=== PATIENT | male | born 1995 | race Caucasian/White ===

== ENCOUNTER 2017-03-24 06:30 | Emergency (ER) | payer MEDICAID ==
[~2017-03-24] VITALS: Ht 167.6 cm; Wt 72.6 kg
[2017-03-24 07:29] LABS: BASOPHILS % (AUTO) 0.6 % (0.0-2.0); EOSINOPHILS # (AUTO) 0.1 K/uL (0.0-0.7); EOSINOPHILS % (AUTO) 0.7 % (0.0-7.0); HEMATOCRIT 45.4 % (40-50); HEMOGLOBIN 15.5 G/DL (14.0-18.0); LYMPHOCYTES # (AUTO) 2.1 K/UL (0.8-4.8); LYMPHOCYTES % (AUTO) 25.5 % (20.5-74.5); MEAN CORPUSCULAR HGB CONC 34 g/dL (32.0-37.0); MONOCYTES # (AUTO) 0.6 K/UL (0.1-1.30); MONOCYTES % (AUTO) 7.5 % (0-11); NEUTROPHILS # (AUTO) 5.4 K/UL (1.8-8.9); NEUTROPHILS % (AUTO) 65.7 % (31.5-64.5); PLATELET COUNT (AUTO) 296 K/UL (150-450); RED BLOOD CELL COUNT(AUTO) 5.16 MIL/UL (4.7-6.1); WHITE BLOOD COUNT (AUTO) 8.2 K/UL (4.0-11.2)
[2017-03-24 07:44] LABS: BILIRUBIN,DIRECT 0.1 mg/dL (0.0-0.2); BILIRUBIN,TOTAL 0.6 mg/dL (0.2-1.0)
[2017-03-24] MEDS ORDERED: LORAZEPAM 0.5 MG TABLET ONE (07:52)
[2017-03-24 07:56] LABS: CREATININE 1.1 mg/dL (0.6-1.3); POTASSIUM 4.1 mmol/L (3.5-5.1)
[2017-03-24] MEDS ORDERED: LORAZEPAM 0.5 MG TABLET PO ONE (08:00)
--- NOTE | 2017-03-24 08:45 | NUR ---
Patient discharged to home in stable conditon. Written and verbal after care instructions given. Patient verbalizes understanding of instructions.pt walks in steady gait. pt waiting for ride
[2017-03-24 09:02] VITALS: BP 132/77
[2017-03-25] MEDS ORDERED: IBUP-1955 PO (13:41)
== END 2017-03-24 09:04 | disposition home or self-care (01) ==
LOC: ER 06:32
DX: R51 Headache (principal); F41.9 Anxiety disorder, unspecified
CPT/HCPCS: 36415; 70450; 80048; 80076; 85025; 99285; A4663

== ENCOUNTER 2017-03-25 13:26 | Emergency (ER) | payer MEDICAID ==
[~2017-03-25] VITALS: Ht 172.7 cm; Wt 68.0 kg
[2017-03-25] MEDS ORDERED: IBUP-1955 PO (13:41)
[2017-03-25] MEDS ORDERED: LORAZEPAM 0.5 MG TABLET PO ONE (14:00)
[2017-03-25] MEDS ORDERED: LORAZEPAM 1 MG TABLET ONE (14:02)
--- NOTE | 2017-03-25 15:03 | NUR ---
Patient is resting comfortably in bed with eyes closed, NAD noted.
[2017-03-25 15:31] VITALS: BP 120/65
--- NOTE | 2017-03-25 15:31 | NUR ---
Patient discharged to home in stable conditon. Written and verbal after care instructions given. Patient verbalizes understanding of instructions.
== END 2017-03-25 15:32 | disposition home or self-care (01) ==
LOC: ER 13:26
DX: F41.9 Anxiety disorder, unspecified (principal); R51 Headache; R53.1 Weakness; R20.2 Paresthesia of skin
CPT/HCPCS: A4663

== ENCOUNTER 2017-03-26 15:35 | Emergency (ER) | payer MEDICAID ==
[~2017-03-26] VITALS: Ht 167.6 cm; Wt 72.6 kg
[~2017-03-26 15:35] MED LIST: IBUP-1955 PO
--- NOTE | 2017-03-26 15:50 | NUR ---
Dr Lau at the bedside for eval and exam.
--- NOTE | 2017-03-26 15:57 | NUR ---
JOSSELINE PATRICK FOR PSYCH EVAL CALLED, ETA 1 HOUR.
[2017-03-26 16:23] LABS: BASOPHILS # (AUTO) 0.1 K/uL (0.0-8.0); BASOPHILS % (AUTO) 0.6 % (0.0-2.0); CARBON DIOXIDE 30 mmol/L (21-32); CHLORIDE 103 mmol/L (98-107); CREATININE 1.2 mg/dL (0.6-1.3); EOSINOPHILS % (AUTO) 0.4 % (0.0-7.0); GLUCOSE 97 mg/dL (74-106); HEMATOCRIT 45.5 % (40-50); HEMOGLOBIN 15.1 G/DL (14.0-18.0); LYMPHOCYTES # (AUTO) 1.7 K/UL (0.8-4.8); LYMPHOCYTES % (AUTO) 18.3 % (20.5-74.5); MEAN CORPUSCULAR HEMOGLOBIN 28.9 UUG (27.0-31.0); MEAN CORPUSCULAR HGB CONC 33 g/dL (32.0-37.0); MEAN CORPUSCULAR VOLUME 86.7 FL (82.0-92.0); MONOCYTES # (AUTO) 0.7 K/UL (0.1-1.30); NEUTROPHILS # (AUTO) 6.6 K/UL (1.8-8.9); NEUTROPHILS % (AUTO) 72.7 % (31.5-64.5); PLATELET COUNT (AUTO) 279 K/UL (150-450); POTASSIUM 4.1 mmol/L (3.5-5.1); RED BLOOD CELL COUNT(AUTO) 5.25 MIL/UL (4.7-6.1); UREA NITROGEN, BLOOD 13 mg/dL (7-18); WHITE BLOOD COUNT (AUTO) 9.1 K/UL (4.0-11.2)
[2017-03-26 16:27] LABS: *BILIRUBIN,URIN NEGATIVE (NEGATIVE); *BLOOD, URINE NEGATIVE (NEGATIVE); *CLARITY,URINE CLEAR (CLEAR); *COLOR,URINE YELLOW (YELLOW); *KETONES,URINE NEGATIVE (NEGATIVE); *PROTEIN,URINE 1+ (NEGATIVE); LEUKOCYTE ESTERASE ,URINE NEGATIVE (NEGATIVE); NITRITE, URINE NEGATIVE (NEGATIVE); UGLUCOSE NEGATIVE (NEGATIVE)
[2017-03-26 16:29] LABS: ALANINE AMINOTRANSFERASE 22 U/L (16-63); ALKALINE PHOSPHATASE 119 U/L (50-136); ASPARTATE AMINOTRANSFERASE 14 U/L (15-37); BILIRUBIN,DIRECT 0.2 mg/dL (0.0-0.2); BILIRUBIN,TOTAL 0.6 mg/dL (0.2-1.0); TOTAL PROTEIN, SERUM 7.9 g/dL (6.4-8.2)
[2017-03-26 16:31] LABS: ETHANOL < 3 MG/DL (0-0)
[2017-03-26 16:32] LABS: ACETAMINOPHEN < 2.0 ug/mL (10-30)
[2017-03-26 16:33] LABS: *AMPHETAMINE, URINE NEGATIVE (NEGATIVE); *BARBITURATE, URINE NEGATIVE (NEGATIVE); *CANNABINOID, URINE NEGATIVE (NEGATIVE); *COCCAINE, URINE NEGATIVE (NEGATIVE); *OPIATE, URINE NEGATIVE (NEGATIVE); *PHENCYCLIDINE SCREEN,URINE NEGATIVE (NEGATIVE)
[2017-03-26 16:57] LABS: THYROID STIMULATING HORMONE 1.204 mIU/mL (0.358-3.740); WBC,URINE NONE SEEN /HPF (0-3)
--- NOTE | 2017-03-26 17:31 | NUR ---
John Paul Owens at the bedside for PSYCH eval.
[2017-03-26 18:09] VITALS: BP 115/79
--- NOTE | 2017-03-26 18:16 | NUR ---
Patient discharged to home in stable conditon. Written and verbal after care instructions given. Patient verbalizes understanding of instructions.
== END 2017-03-26 18:17 | disposition home or self-care (01) ==
LOC: ER 15:36
DX: F41.9 Anxiety disorder, unspecified (principal)
CPT/HCPCS: 36415; 80307; 84443; 85025; 85730; 86592; A4663; G0480; G0480-TC

== ENCOUNTER 2017-11-12 17:55 | Emergency (ER) | payer MEDICAID ==
[~2017-11-12] VITALS: Ht 170.2 cm; Wt 68.0 kg
--- NOTE | 2017-11-12 19:24 | NUR ---
RECEIVED REPORT FROM FELIBERTO BELLO.
--- NOTE | 2017-11-12 19:33 | NUR ---
Patient discharged to home in stable conditon. Written and verbal after care instructions given. Patient verbalizes understanding of instructions. Patient expressed reduced level of pain. Patient able to ambulate unassisted with steady gait. Patient left with all personal belongings.
[2017-11-12 19:35] VITALS: BP 125/67
== END 2017-11-12 19:36 | disposition home or self-care (01) ==
LOC: ER 17:57
DX: G89.29 Other chronic pain (principal); M54.2 Cervicalgia; Z90.49 Acquired absence of other specified parts of digestive tract; Z79.1 Long term (current) use of non-steroidal anti-inflammatories (NSAID)
CPT/HCPCS: A4663

== ENCOUNTER 2018-05-04 00:04 | Inpatient (IN) | payer MEDICAID ==
[~2018-05-04] VITALS: Ht 170.2 cm; Wt 72.1 kg
[2018-05-04] VITALS (18 sets, daily range): BP systolic 98–121; BP diastolic 27–87
--- NOTE | 2018-05-04 00:10 | NUR ---
Dr. Barlow at bedside for MSE.
[2018-05-04] MEDS ORDERED: DILTIAZEM HCL 25 MG IV IV ONE ×3 (00:15→02:15)
[2018-05-04] MEDS ORDERED: DILTIAZEM HCL 25 MG IV ONE ×4 (00:21→02:10)
[2018-05-04] MEDS ORDERED: IV NORMAL SALINE 1000 ML BAG IV ONE (00:30)
[2018-05-04 00:32] LABS: BASOPHILS # (AUTO) 0.1 K/uL (0.0-8.0); BASOPHILS % (AUTO) 0.5 % (0.0-2.0); EOSINOPHILS # (AUTO) 0.1 K/uL (0.0-0.7); EOSINOPHILS % (AUTO) 0.5 % (0.0-7.0); HEMATOCRIT 47.5 % (36.7-47.1); HEMOGLOBIN 16.3 g/dL (12.5-16.3); LYMPHOCYTES # (AUTO) 2.6 K/uL (20.0-40.0); LYMPHOCYTES % (AUTO) 23.3 % (20.5-51.5); MEAN CORPUSCULAR HEMOGLOBIN 30.4 uug (23.8-33.4); MEAN CORPUSCULAR HGB CONC 34 g/dL (32.5-36.3); MEAN CORPUSCULAR VOLUME 88.7 fL (73.0-96.2); MONOCYTES # (AUTO) 1.1 K/uL (2.0-10.0); MONOCYTES % (AUTO) 9.3 % (0.0-11.0); NEUTROPHILS # (AUTO) 7.5 K/uL (1.8-8.9); NEUTROPHILS % (AUTO) 66.4 % (38.5-71.5); PLATELET COUNT (AUTO) 224 K/uL (152-348); RED BLOOD CELL COUNT(AUTO) 5.36 MIL/uL (4.06-5.63); WHITE BLOOD COUNT (AUTO) 11.3 K/uL (3.6-10.2)
[2018-05-04 00:37] LABS: CREATININE 1.1 mg/dL (0.6-1.3); POTASSIUM 3.5 mmol/L (3.5-5.1)
[2018-05-04] MEDS ORDERED: LORAZEPAM 2 MG/1 ML VIAL IV ONE (00:45)
[2018-05-04] MEDS ORDERED: LORAZEPAM 2 MG/1 ML VIAL ONE (00:49)
[2018-05-04] MEDS ORDERED: DILTIAZEM HCL IV 125 MG in IV DEXTROSE 5% 100 ML IV PRN (01:30)
[2018-05-04] MEDS ORDERED: DILTIAZEM HCL 50 MG IV ONE (01:52)
--- NOTE | 2018-05-04 01:54 | NUR ---
SPOKE WITH PT.HE STATES THAT HE TAKES NO PRESCRIPTION MEDS AT HOME
--- NOTE | 2018-05-04 02:10 | NUR ---
Xray at bedside
--- NOTE | 2018-05-04 02:10 | NUR ---
Dr. Barlow on panel call with Dr. Joseph.
[2018-05-04 02:20] LABS: BILIRUBIN,DIRECT 0.2 mg/dL (0.0-0.2); BILIRUBIN,TOTAL 0.4 mg/dL (0.2-1.0); TOTAL PROTEIN, SERUM 6.9 g/dL (6.4-8.2)
[2018-05-04] MEDS ORDERED: Z GUARD REMEDY PASTE 57 GM TUBE TOP PRN (02:30)
[2018-05-04] MEDS ORDERED: MAGNESIUM HYDROXIDE 30 ML LIQUID UDC PO PRN (02:30)
[2018-05-04] MEDS ORDERED: ONDANSETRON 4 MG/2 ML VIAL IV PRN (02:30)
[2018-05-04] MEDS ORDERED: HYDROCODONE/APAP 5-325MG TABLET PO PRN (02:30)
[2018-05-04] MEDS ORDERED: ACETAMINOPHEN 325 MG TABLET PO PRN (02:30)
--- NOTE | 2018-05-04 02:41 | NUR ---
Report given to Vini DAO CCU.
--- NOTE | 2018-05-04 03:20 | NUR ---
Admitted to CCU Room 4 from ER via carol accompanied by VEHICLE TRIMMER. Adm. Dx: SVT under the services of Dr. Marcano/[facility]. Pt alert, oriented, cooperative. Cardizem drip 5 mg/hr infusing from ER at right antecubital IV site. Plans of care discussed. Oriented to CCU environment and routine. Please see CCU admission profile. Sister in for brief time.
--- NOTE | 2018-05-04 03:30 | NUR ---
Cardizem drip titrated up, O2 2L/min applied. Close monitoring in progress.
--- NOTE | 2018-05-04 04:19 | NUR ---
Converted to SR rate 70's. Pt sleeping at periodic intervals. Denies pain/discomfort.
[2018-05-04 05:05] LABS: *BILIRUBIN,URIN NEGATIVE (NEGATIVE); *BLOOD, URINE NEGATIVE (NEGATIVE); *CLARITY,URINE CLEAR (CLEAR); *COLOR,URINE LIGHT YELLOW (YELLOW); *KETONES,URINE NEGATIVE (NEGATIVE); *PROTEIN,URINE NEGATIVE (NEGATIVE); *UROBILINOGEN,URINE 0.2 E.U./dl (NORMAL); LEUKOCYTE ESTERASE ,URINE NEGATIVE (NEGATIVE); NITRITE, URINE NEGATIVE (NEGATIVE); UGLUCOSE NEGATIVE (NEGATIVE)
[2018-05-04 05:20] LABS: BACTERIA,URINE NONE SEEN /HPF (NONE SEEN); RBC,URINE NONE SEEN /HPF (0-3); SQUAMOUS EPITHELIAL CELL,UR NONE SEEN /HPF (NONE SEEN); WBC,URINE 0-3 /HPF (0-3)
[2018-05-04 05:47] LABS: *AMPHETAMINE, URINE NEGATIVE (NEGATIVE); *BARBITURATE, URINE NEGATIVE (NEGATIVE); *CANNABINOID, URINE NEGATIVE (NEGATIVE); *COCCAINE, URINE NEGATIVE (NEGATIVE); *OPIATE, URINE NEGATIVE (NEGATIVE); *PHENCYCLIDINE SCREEN,URINE NEGATIVE (NEGATIVE)
--- NOTE | 2018-05-04 07:33 | NUR ---
RECEIVED A 23 Y/O MALE PT A CASE OF SVT, ALERT CONSCIOUS ORIENTED , PT ASLEEP ON BED, BREATHING VIA N/C 3LPM. HAS A IV LINE ON HIS RT AC G20, RECEIVING CARDIZEM DRIP 5MG/HR AND N/S IV @TKO. URINATING FREELY USING THE URINAL.
--- NOTE | 2018-05-04 17:10 | NUR ---
SEEN BY DR SHAHID AND PT ASSESSED , ORDERED FOR AN EKG, WROTE THE PATIENT A DISCHARGE PRESCRIPTION, AND SAID ITS OKAY FOR THE PATIENT TO BE DISCHARGED. ALL ORDERS RECEIVED AND EKG DONE.
--- NOTE | 2018-05-04 18:22 | NUR ---
ORDER BY DR RUBIO FOR PATIENT DISCHARGE . ORDER RECEIVED AND DONE.
--- NOTE | 2018-05-04 18:52 | NUR ---
PATIENT DISCHARGED TO HOME RECEIVED ALL HIS BELONGINGS AND DISCHARGE INSTRUCTIONS AND PRESCRIPTION.
== END 2018-05-04 18:45 | disposition home or self-care (01) | DRG 201 ==
LOC: ER 00:07 → CCU 02:49
PROVIDERS: ADMIT Family Medicine; ATTEND Family Medicine
DX: I48.0 Paroxysmal atrial fibrillation (principal); I21.A1 Myocardial infarction type 2; D72.828 Other elevated white blood cell count; F41.9 Anxiety disorder, unspecified; Z82.3 Family history of stroke; Z83.3 Family history of diabetes mellitus; R73.9 Hyperglycemia, unspecified
CPT/HCPCS: 36415; 70030-TC; 71045; 80307; 84443; 85025; 93005; 93307; A4663; J2060; J3490; J7030; J7060

== ENCOUNTER 2019-01-07 18:08 | Emergency (ER) | payer MEDICAID ==
[~2019-01-07] VITALS: Ht 170.2 cm; Wt 72.6 kg
[2019-01-07 18:24] LABS: BASOPHILS # (AUTO) 0.1 K/uL (0.0-8.0); BASOPHILS % (AUTO) 0.7 % (0.0-2.0); EOSINOPHILS # (AUTO) 0.1 K/uL (0.0-0.7); EOSINOPHILS % (AUTO) 0.6 % (0.0-7.0); HEMATOCRIT 45.8 % (36.7-47.1); HEMOGLOBIN 15.8 g/dL (12.5-16.3); LYMPHOCYTES # (AUTO) 2.4 K/uL (20.0-40.0); LYMPHOCYTES % (AUTO) 28.5 % (20.5-51.5); MEAN CORPUSCULAR HEMOGLOBIN 29.8 uug (23.8-33.4); MEAN CORPUSCULAR HGB CONC 35 g/dL (32.5-36.3); MEAN CORPUSCULAR VOLUME 86.2 fL (73.0-96.2); MONOCYTES # (AUTO) 0.8 K/uL (2.0-10.0); MONOCYTES % (AUTO) 9.7 % (0.0-11.0); NEUTROPHILS # (AUTO) 5.1 K/uL (1.8-8.9); NEUTROPHILS % (AUTO) 60.5 % (38.5-71.5); PLATELET COUNT (AUTO) 251 K/uL (152-348); RED BLOOD CELL COUNT(AUTO) 5.31 MIL/uL (4.06-5.63); WHITE BLOOD COUNT (AUTO) 8.4 K/uL (3.6-10.2)
[2019-01-07 18:34] LABS: CREATININE 1.1 mg/dL (0.6-1.3); POTASSIUM 3.6 mmol/L (3.5-5.1)
[2019-01-07] MEDS ORDERED: METOPROLOL TARTRATE 5 MG/5 ML VIAL IVP ONE ×2 (18:43→18:45)
[2019-01-07] MEDS ORDERED: ETOMIDATE 20 MG/10 ML VIAL IV ONE (18:45)
[2019-01-07 18:47] LABS: BILIRUBIN,DIRECT 0.1 mg/dL (0.0-0.2); BILIRUBIN,TOTAL 0.6 mg/dL (0.2-1.0); TOTAL PROTEIN, SERUM 7.6 g/dL (6.4-8.2)
--- NOTE | 2019-01-07 18:50 | NUR ---
Moderate sedation for synchronized cardioversion done with , nursing staff and RT at bedside.
[2019-01-07] MEDS ORDERED: ETOMIDATE 20 MG/10 ML VIAL ONE (18:51)
--- NOTE | 2019-01-07 18:51 | NUR ---
Etomidate IVP given by Philippe DAO as ordered by . Biphasic synchronized cardioversion 100J x 1 by , pt converted to NSR.
--- NOTE | 2019-01-07 18:55 | NUR ---
Pt is awake, alert and oriented x 3 with no distress noted. Pt denies any chest pain, palpitations or sob at this time. Cont math specialist shows NSR.
[2019-01-07] MEDS ORDERED: METOPROLOL SUCCINATE XL 25 MG TAB.SR.24H PO ONE ×2 (18:59→19:00)
--- NOTE | 2019-01-07 19:07 | NUR ---
REPORT GIVEN TO INSURANCE RISK SURVEYORAERONAUTICAL ENGINEERING TECHNOLOGIST.
[2019-01-07] MEDS ORDERED: LORAZEPAM 2 MG/1 ML VIAL ONE (19:25)
[2019-01-07] MEDS ORDERED: LORAZEPAM 2 MG/1 ML VIAL IV ONE (19:30)
--- NOTE | 2019-01-07 20:35 | NUR ---
Patient discharged to home in stable conditon. Written and verbal after care instructions given. Patient verbalizes understanding of instructions. Patient ambulated with stable gait. Patient does not appear to be shakey, patient able to ambulate all extremities. Respiratory even and unlabored, no distress. Advised f/u appt to PMD or cleaning associate regarding ablation, patient understands necessity.
[2019-01-07 20:37] VITALS: BP 117/85
== END 2019-01-07 20:30 | disposition home or self-care (01) ==
LOC: ER 18:09
DX: I48.2 Chronic atrial fibrillation (principal); F41.9 Anxiety disorder, unspecified; Z90.49 Acquired absence of other specified parts of digestive tract
CPT/HCPCS: 36415; 71045; 80048; 80076; 83880; 84484; 85025; 85730; 92960; 93005 ×2; 96374; 96375; 99152; 99285; J2060; J3490 ×2; 70030-TC; A4663; G0500

== ENCOUNTER 2019-01-20 23:57 | Emergency (ER) | payer MEDICAID ==
[~2019-01-20] VITALS: Ht 170.2 cm; Wt 72.6 kg
--- NOTE | 2019-01-21 00:08 | NUR ---
Patient ambulated with stable gait. A/Ox4. SPeech clear, speaks in complete sentences no neuro deficits. Patient came in for c/o rapid heart rate s/p sexual intercourse with girlfriend [address]. Patient appears anxious. Respiratory rate is increased. No GI/ distress noted. Patient seen here last time for same complaint. Patient in bed at lowest position, sr upx2, call light within reach. Fall precautions implemented per protocol.
[2019-01-21] MEDS: DILTIAZEM HCL 25 MG IV IV ONE ×2 (00:15→00:23)
[2019-01-21] MEDS: IV NORMAL SALINE 1000 ML BAG IV ONE ×2 (00:15→00:23)
[2019-01-21] MEDS: LORAZEPAM 2 MG/1 ML VIAL IV ONE ×3 (00:15→00:32)
[2019-01-21] MEDS ORDERED: DILTIAZEM HCL 25 MG IV ONE (00:19)
[2019-01-21] MEDS ORDERED: LORAZEPAM 2 MG/1 ML VIAL ONE (00:28)
[2019-01-21 00:29] LABS: BASOPHILS # (AUTO) 0.1 K/uL (0.0-8.0); BASOPHILS % (AUTO) 0.8 % (0.0-2.0); EOSINOPHILS # (AUTO) 0.1 K/uL (0.0-0.7); HEMATOCRIT 45.9 % (36.7-47.1); HEMOGLOBIN 15.6 g/dL (12.5-16.3); LYMPHOCYTES # (AUTO) 2.9 K/uL (20.0-40.0); LYMPHOCYTES % (AUTO) 34.1 % (20.5-51.5); MEAN CORPUSCULAR HEMOGLOBIN 29.8 uug (23.8-33.4); MEAN CORPUSCULAR HGB CONC 34 g/dL (32.5-36.3); MEAN CORPUSCULAR VOLUME 87.7 fL (73.0-96.2); MONOCYTES # (AUTO) 0.7 K/uL (2.0-10.0); MONOCYTES % (AUTO) 8.4 % (0.0-11.0); NEUTROPHILS # (AUTO) 4.7 K/uL (1.8-8.9); NEUTROPHILS % (AUTO) 55.7 % (38.5-71.5); PLATELET COUNT (AUTO) 196 K/uL (152-348); RED BLOOD CELL COUNT(AUTO) 5.23 MIL/uL (4.06-5.63); WHITE BLOOD COUNT (AUTO) 8.4 K/uL (3.6-10.2)
[2019-01-21 00:40] LABS: CREATININE 1.3 mg/dL (0.6-1.3); POTASSIUM 3.3 mmol/L (3.5-5.1)
[2019-01-21 00:46] LABS: BILIRUBIN,DIRECT 0.1 mg/dL (0.0-0.2); BILIRUBIN,TOTAL 0.3 mg/dL (0.2-1.0); TOTAL PROTEIN, SERUM 7.2 g/dL (6.4-8.2)
[2019-01-21 01:30] VITALS: BP 112/74
--- NOTE | 2019-01-21 01:31 | NUR ---
Patient discharged to home in stable conditon. Written and verbal after care instructions given. Patient verbalizes understanding of instructions. Patient ambulated with stable gait. Instructed patient that he cannot drive and needs to have his girlfriend drive due to medications given, patient understands.
== END 2019-01-21 01:35 | disposition home or self-care (01) ==
LOC: ER 01-21
DX: I47.1 Supraventricular tachycardia (principal); I48.91 Unspecified atrial fibrillation; Z90.49 Acquired absence of other specified parts of digestive tract
CPT/HCPCS: 36415; 71045; 80048; 80076; 83690; 84484; 85025; 85730; 93005; 96374; 96375; 99284; J2060; J3490; 70030-TC; A4663; J7030

== ENCOUNTER 2019-02-03 18:37 | Emergency (ER) | payer MEDICAID ==
[~2019-02-03] VITALS: Ht 170.2 cm; Wt 74.8 kg
[2019-02-03] MEDS ORDERED: DILT-32 PO (18:49)
--- NOTE | 2019-02-03 19:03 | NUR ---
Patient discharged to home in stable conditon & brisk steady gait. Written and verbal after care instructions given to patient. Patient verbalizes understanding of instructions.
== END 2019-02-03 19:08 | disposition home or self-care (01) ==
LOC: ER 18:39
DX: I47.1 Supraventricular tachycardia (principal); I48.91 Unspecified atrial fibrillation; Z90.49 Acquired absence of other specified parts of digestive tract; Z79.899 Other long term (current) drug therapy; Z86.79 Personal history of other diseases of the circulatory system
CPT/HCPCS: A4663

== ENCOUNTER 2019-02-06 03:22 | Emergency (ER) | payer MEDICAID ==
[~2019-02-06] VITALS: Ht 170.2 cm; Wt 74.8 kg
[~2019-02-06 03:22] MED LIST changes: +DILT-32 PO; -IBUP-1955 PO
--- NOTE | 2019-02-06 03:40 | NUR ---
Patient came in for c/o palpitations. Patient seen here before for SVT. Speech is clear, speaks in complete sentences. A/Ox4. No neuro deficits. No respiratory distress noted, no cough no sob. No GI/ distress.
[2019-02-06 04:23] LABS: BASOPHILS % (AUTO) 0.4 % (0.0-2.0); EOSINOPHILS # (AUTO) 0.1 K/uL (0.0-0.7); EOSINOPHILS % (AUTO) 0.9 % (0.0-7.0); HEMATOCRIT 45.3 % (36.7-47.1); HEMOGLOBIN 15.8 g/dL (12.5-16.3); LYMPHOCYTES % (AUTO) 31.2 % (20.5-51.5); MEAN CORPUSCULAR HEMOGLOBIN 29.8 uug (23.8-33.4); MEAN CORPUSCULAR HGB CONC 35 g/dL (32.5-36.3); MEAN CORPUSCULAR VOLUME 85.7 fL (73.0-96.2); MONOCYTES # (AUTO) 0.9 K/uL (2.0-10.0); MONOCYTES % (AUTO) 9.2 % (0.0-11.0); NEUTROPHILS # (AUTO) 5.5 K/uL (1.8-8.9); NEUTROPHILS % (AUTO) 58.3 % (38.5-71.5); PLATELET COUNT (AUTO) 252 K/uL (152-348); RED BLOOD CELL COUNT(AUTO) 5.29 MIL/uL (4.06-5.63); WHITE BLOOD COUNT (AUTO) 9.5 K/uL (3.6-10.2)
[2019-02-06 04:28] LABS: CREATININE 1.1 mg/dL (0.6-1.3); POTASSIUM 3.5 mmol/L (3.5-5.1)
--- NOTE | 2019-02-06 06:23 | NUR ---
Patient discharged to home in stable conditon. Written and verbal after care instructions given. Patient verbalizes understanding of instructions. Patient ambulated with stable gait.
[2019-02-06 06:25] VITALS: BP 130/72
== END 2019-02-06 06:25 | disposition home or self-care (01) ==
LOC: ER 03:26
DX: I47.1 Supraventricular tachycardia (principal); I48.91 Unspecified atrial fibrillation; Z90.49 Acquired absence of other specified parts of digestive tract; Z79.899 Other long term (current) drug therapy
CPT/HCPCS: 36415; 70030-TC; 83735; 85025; 93005; A4663

== ENCOUNTER 2019-04-29 00:47 | Emergency (ER) | payer MEDICAID ==
[~2019-04-29] VITALS: Ht 170.2 cm; Wt 72.6 kg
[2019-04-29] MEDS ORDERED: OXYCODONE/APAP 5-325 MG TABLET ONE (01:58)
--- NOTE | 2019-04-29 01:59 | NUR ---
Patient discharged to home in stable conditon. Written and verbal after care instructions given. Patient verbalizes understanding of instructions.
[2019-04-29 02:00] VITALS: BP 128/69
[2019-04-29] MEDS ORDERED: OXYCODONE/APAP 5-325 MG TABLET PO ONE (02:00)
== END 2019-04-29 02:01 | disposition home or self-care (01) ==
LOC: ER 00:50
DX: M54.5 Low back pain (principal); I48.91 Unspecified atrial fibrillation; F41.9 Anxiety disorder, unspecified; Z90.49 Acquired absence of other specified parts of digestive tract; Z79.899 Other long term (current) drug therapy
CPT/HCPCS: 72100; A4663

== ENCOUNTER 2019-07-12 22:44 | Emergency (ER) | payer MEDICAID, OTHER ==
[~2019-07-12] VITALS: Ht 172.7 cm; Wt 78.0 kg
--- NOTE | 2019-07-12 23:35 | NUR ---
Patient discharged to home in stable conditon. Written and verbal after care instructions given. Patient verbalizes understanding of instructions.
[2019-07-12 23:36] VITALS: BP 132/76
== END 2019-07-12 23:36 | disposition home or self-care (01) ==
LOC: ER 22:44
DX: R06.00 Dyspnea, unspecified (principal); I48.91 Unspecified atrial fibrillation; F41.9 Anxiety disorder, unspecified; Z90.49 Acquired absence of other specified parts of digestive tract; Z79.899 Other long term (current) drug therapy
CPT/HCPCS: 93005; A4663

== ENCOUNTER 2019-07-15 18:16 | Emergency (ER) | payer OTHER ==
[~2019-07-15] VITALS: Ht 170.2 cm; Wt 72.6 kg
--- NOTE | 2019-07-15 18:27 | NUR ---
pt ambulating with steady gait. A&O x4. c/o left eye pain x2 days. 6/10 on the pain scale. Redness noted on left eye. per pt blurred vision on left eye. per pt contact lenses could've caused problem. Vision test done. pt wearing contact lenses on right eye. RIGHT 20/40. LEFT 20/100. BOTH 20/50. denies any dizziness. Breathing even and unlabored. Denies any SOB. speech clear and able to make needs known / follow commands.
--- NOTE | 2019-07-15 18:30 | NUR ---
ERMD at bedside for MSE
--- NOTE | 2019-07-15 18:48 | NUR ---
Patient discharged to home in stable conditon. Patient ambulating with steady gait. Written and verbal after care instructions given. Patient verbalizes understanding of instructions.
[2019-07-15 18:49] VITALS: BP 122/70
== END 2019-07-15 18:49 | disposition home or self-care (01) ==
LOC: ER 18:16
DX: H10.022 Other mucopurulent conjunctivitis, left eye (principal); I48.91 Unspecified atrial fibrillation; F41.9 Anxiety disorder, unspecified; Z90.49 Acquired absence of other specified parts of digestive tract; Z79.899 Other long term (current) drug therapy
CPT/HCPCS: A4663

== ENCOUNTER 2019-09-18 02:44 | Emergency (ER) | payer OTHER ==
[~2019-09-18] VITALS: Ht 170.2 cm; Wt 74.8 kg
[2019-09-18 03:08] LABS: BASOPHILS % (AUTO) 0.4 % (0.0-2.0); EOSINOPHILS % (AUTO) 0.7 % (0.0-7.0); HEMATOCRIT 46.5 % (36.7-47.1); HEMOGLOBIN 15.4 g/dL (12.5-16.3); LYMPHOCYTES # (AUTO) 2.3 K/uL (20.0-40.0); LYMPHOCYTES % (AUTO) 33.5 % (20.5-51.5); MEAN CORPUSCULAR HEMOGLOBIN 29.4 uug (23.8-33.4); MEAN CORPUSCULAR HGB CONC 33 g/dL (32.5-36.3); MEAN CORPUSCULAR VOLUME 88.5 fL (73.0-96.2); MONOCYTES # (AUTO) 0.6 K/uL (2.0-10.0); MONOCYTES % (AUTO) 8.2 % (0.0-11.0); NEUTROPHILS # (AUTO) 3.9 K/uL (1.8-8.9); NEUTROPHILS % (AUTO) 57.2 % (38.5-71.5); PLATELET COUNT (AUTO) 213 K/uL (152-348); RED BLOOD CELL COUNT(AUTO) 5.25 MIL/uL (4.06-5.63); WHITE BLOOD COUNT (AUTO) 6.8 K/uL (3.6-10.2)
[2019-09-18 03:12] LABS: POTASSIUM 3.6 mmol/L (3.5-5.1)
[2019-09-18] MEDS ORDERED: DILTIAZEM HCL CD 120 MG CAP.SR.24H PO ONE ×2 (03:39→03:45)
[2019-09-18] MEDS ORDERED: POTASSIUM CHLORIDE 20 MEQ TAB.PRT.SR ONE (03:40)
[2019-09-18] MEDS ORDERED: POTASSIUM CHLORIDE 20 MEQ TAB.PRT.SR PO ONE (03:45)
--- NOTE | 2019-09-18 04:42 | NUR ---
Patient discharged to home in stable conditon. Written and verbal after care instructions given. Patient verbalizes understanding of instructions. Pt ambulated out of ER with steady gait, no acute signs of distress, VSS, all belongings taken, IV site discontinued.
[2019-09-18 04:43] VITALS: BP 104/56
== END 2019-09-18 04:44 | disposition home or self-care (01) ==
LOC: ER 02:54
DX: I47.1 Supraventricular tachycardia (principal); R00.2 Palpitations; I48.91 Unspecified atrial fibrillation; F41.9 Anxiety disorder, unspecified; Z90.49 Acquired absence of other specified parts of digestive tract; Z79.899 Other long term (current) drug therapy
CPT/HCPCS: 36415; 70030-TC; 83735; 85025; 93005; A4663

== ENCOUNTER 2019-09-21 02:39 | Emergency (ER) | payer OTHER ==
[~2019-09-21] VITALS: Ht 172.7 cm; Wt 76.7 kg
[2019-09-21] MEDS ORDERED: IV NORMAL SALINE 1000 ML BAG IV ONE (02:45)
--- NOTE | 2019-09-21 03:17 | NUR ---
Pt resting comfortably in bed. IV fluids infusing. HR 96 Sinus Tach on monitoring and evaluation advisor. Denies any pain or discomfort. Will continue to monitor.
[2019-09-21 04:38] VITALS: BP 123/62
--- NOTE | 2019-09-21 04:38 | NUR ---
Patient discharged to home in stable conditon. Written and verbal after care instructions given. Patient verbalizes understanding of instructions. Pt walked out of ER in stable gait. No acute distress noted. States he feels better. Vital signs stable. HR 92 NSR. Respirations even + unlabored.
--- NOTE | 2019-09-21 04:38 | NUR ---
IV removed. Catheter intact and site benign. Pressure and 4x4 gauze applied to site. No bleeding noted.
== END 2019-09-21 04:39 | disposition home or self-care (01) ==
LOC: ER 02:41
DX: R00.2 Palpitations (principal); I48.91 Unspecified atrial fibrillation; F41.9 Anxiety disorder, unspecified; Z90.49 Acquired absence of other specified parts of digestive tract; Z79.899 Other long term (current) drug therapy
CPT/HCPCS: 93005; A4663; J7030

== ENCOUNTER 2019-09-25 02:06 | Emergency (ER) | payer MEDICAID, OTHER ==
[~2019-09-25] VITALS: Ht 175.3 cm; Wt 78.5 kg
--- NOTE | 2019-09-25 02:18 | NUR ---
Dr. Shahid at bedside for MSE.
[2019-09-25] MEDS ORDERED: LORAZEPAM 2 MG/1 ML VIAL ONE (02:20)
[2019-09-25] MEDS ORDERED: DILTIAZEM HCL 25 MG IV ONE (02:21)
[2019-09-25] MEDS ORDERED: LORAZEPAM 2 MG/1 ML VIAL IV ONE (02:30)
[2019-09-25] MEDS ORDERED: DILTIAZEM HCL 25 MG IV IV ONE (02:30)
[2019-09-25 02:52] LABS: CREATININE 1.1 mg/dL (0.6-1.3); POTASSIUM 3.3 mmol/L (3.5-5.1)
[2019-09-25] MEDS ORDERED: POTASSIUM CHLORIDE 20 MEQ TAB.PRT.SR ONE (03:06)
[2019-09-25] MEDS ORDERED: POTASSIUM CHLORIDE 20 MEQ TAB.PRT.SR PO ONE (03:15)
[2019-09-25 03:21] VITALS: BP 130/77
== END 2019-09-25 03:21 | disposition home or self-care (01) ==
LOC: ER 02:08
DX: R00.2 Palpitations (principal); I48.91 Unspecified atrial fibrillation; F41.9 Anxiety disorder, unspecified; Z90.49 Acquired absence of other specified parts of digestive tract; Z79.899 Other long term (current) drug therapy
CPT/HCPCS: 36415; 80048; 84484; 93005; 96374; 96375; 99284; J2060; J3490; 70030-TC; A4663

== ENCOUNTER 2019-09-28 21:43 | Emergency (ER) | payer MEDICAID ==
[~2019-09-28] VITALS: Ht 170.2 cm; Wt 74.8 kg
--- NOTE | 2019-09-28 23:20 | NUR ---
Dr. Gramajo at bedside for MSE
[2019-09-28 23:58] LABS: CREATININE 1.1 mg/dL (0.6-1.3); POTASSIUM 3.5 mmol/L (3.5-5.1)
[2019-09-29] MEDS ORDERED: POTASSIUM CHLORIDE 20 MEQ TAB.PRT.SR ONE (00:38)
[2019-09-29] MEDS ORDERED: POTASSIUM CHLORIDE 20 MEQ TAB.PRT.SR PO ONE (00:45)
--- NOTE | 2019-09-29 00:46 | NUR ---
Patient discharged to home in stable conditon. Written and verbal after care instructions given. Patient verbalizes understanding of instructions. Patient ambulating with steady gait
[2019-09-29 00:48] VITALS: BP 116/62
== END 2019-09-29 00:46 | disposition home or self-care (01) ==
LOC: ER 21:44
DX: I48.91 Unspecified atrial fibrillation (principal); F41.9 Anxiety disorder, unspecified; Z90.49 Acquired absence of other specified parts of digestive tract; Z79.899 Other long term (current) drug therapy; Z76.0 Encounter for issue of repeat prescription
CPT/HCPCS: 36415; A4663

== ENCOUNTER 2020-01-07 21:10 | Emergency (ER) | payer MEDICAID ==
[~2020-01-07] VITALS: Ht 170.2 cm; Wt 72.6 kg
--- NOTE | 2020-01-07 21:23 | NUR ---
Dr. Corey at bedside for MSE.
--- NOTE | 2020-01-07 21:53 | NUR ---
Patient discharged to home in stable condition. Written and verbal after care instructions given. Patient verbalizes understanding of instructions. Stressed follow up or return to ER for worsening s/s. Pt ambulated out of ER with steady gait, no acute signs of distress, VSS, all belongings taken.
[2020-01-07 21:54] VITALS: BP 123/99
== END 2020-01-07 21:54 | disposition home or self-care (01) ==
LOC: ER 21:15
PROC: 0HQHXZZ Repair Right Upper Leg Skin, External Approach (ICD-10-PCS; principal; 2020-01-07)
DX: L76.22 Postprocedural hemorrhage of skin and subcutaneous tissue following other procedure (principal)
CPT/HCPCS: A4663; J3490

== ENCOUNTER 2020-07-16 18:45 | Emergency (ER) | payer MEDICAID ==
[~2020-07-16] VITALS: Ht 170.2 cm; Wt 83.9 kg
--- NOTE | 2020-07-16 19:04 | NUR ---
PT IS IN ROOM #1B. DR SIMMONS EVALUATED THE PT.
[2020-07-16 19:42] LABS: BASOPHILS % (AUTO) 0.6 % (0.0-2.0); EOSINOPHILS # (AUTO) 0.1 K/uL (0.0-0.7); EOSINOPHILS % (AUTO) 0.8 % (0.0-7.0); HEMATOCRIT 44.3 % (36.7-47.1); HEMOGLOBIN 15.2 g/dL (12.5-16.3); LYMPHOCYTES # (AUTO) 2.3 K/uL (20.0-40.0); LYMPHOCYTES % (AUTO) 32.3 % (20.5-51.5); MEAN CORPUSCULAR HEMOGLOBIN 30.2 uug (23.8-33.4); MEAN CORPUSCULAR HGB CONC 34 g/dL (32.5-36.3); MEAN CORPUSCULAR VOLUME 87.9 fL (73.0-96.2); MONOCYTES # (AUTO) 0.6 K/uL (2.0-10.0); MONOCYTES % (AUTO) 8.7 % (0.0-11.0); NEUTROPHILS # (AUTO) 4.1 K/uL (1.8-8.9); NEUTROPHILS % (AUTO) 57.6 % (38.5-71.5); PLATELET COUNT (AUTO) 222 K/uL (152-348); RED BLOOD CELL COUNT(AUTO) 5.04 MIL/uL (4.06-5.63); WHITE BLOOD COUNT (AUTO) 7.2 K/uL (3.6-10.2)
[2020-07-16 19:49] LABS: POTASSIUM 3.8 mmol/L (3.5-5.1)
--- NOTE | 2020-07-16 20:21 | NUR ---
PT DECIDED TO LEAVE [facility] ER AMA. DR SIMMONS EXPLAINED ALL RISKS OF LEAVING HOSPITAL ER AMA TO THE PT. PT VERBALISED FULL UNDERSTANDING. PT SIGNED AMA FORM AND LEFT HOSPITAL WITH HIS FRIEND. NO S/S OF DISTRESS WERE PRESENT ANT THIS TIME. NO SOB. PT DENIES PAIN. NO N/V. GAIT IS STABLE.
[2020-07-16 20:24] VITALS: BP 121/66
== END 2020-07-16 20:25 | disposition left against medical advice (07) ==
LOC: ER 18:50
DX: R00.2 Palpitations (principal); I45.6 Pre-excitation syndrome; F41.9 Anxiety disorder, unspecified
CPT/HCPCS: 36415; 70030-TC; 71045; 85025; 93005; A4663

== ENCOUNTER 2020-09-05 22:07 | Emergency (ER) | payer SELFPAY ==
--- NOTE | 2020-09-05 22:29 | NUR ---
CALLEDE 3 TIMES NO ANSWER, PT LEFT W/O BEING TRIAGED
== END 2020-09-05 22:29 | disposition left against medical advice (07) ==
LOC: ER 22:07
DX: Z75.3 Unavailability and inaccessibility of health-care facilities (principal)

== ENCOUNTER 2020-10-09 12:12 | Emergency (ER) | payer MEDICAID ==
[~2020-10-09] VITALS: Ht 170.2 cm; Wt 81.6 kg
--- NOTE | 2020-10-09 12:23 | NUR ---
Dr Velasquez at the bedside for MSE.
[2020-10-09 12:41] VITALS: BP 130/61
[2020-10-09] MEDS ORDERED: LORAZEPAM 1 MG TABLET ONE (12:41)
--- NOTE | 2020-10-09 12:41 | NUR ---
Patient discharged to home in stable condition. Written and verbal after care instructions given. Patient verbalizes understanding of instructions. Stressed follow up or return to ER for worsening s/s.
[2020-10-09] MEDS ORDERED: LORAZEPAM 0.5 MG TABLET PO ONE (12:45)
== END 2020-10-09 12:42 | disposition home or self-care (01) ==
LOC: ER 12:12
DX: F41.9 Anxiety disorder, unspecified (principal); I45.6 Pre-excitation syndrome; Z79.899 Other long term (current) drug therapy
CPT/HCPCS: A4663

== ENCOUNTER 2020-11-01 17:47 | Emergency (ER) | payer MEDICAID ==
[~2020-11-01] VITALS: Ht 170.2 cm; Wt 86.2 kg
[2020-11-01 18:26] LABS: BASOPHILS % (AUTO) 0.4 % (0.0-2.0); EOSINOPHILS % (AUTO) 0.4 % (0.0-7.0); HEMATOCRIT 42.9 % (36.7-47.1); HEMOGLOBIN 15.1 g/dL (12.5-16.3); LYMPHOCYTES # (AUTO) 2.2 K/uL (20.0-40.0); LYMPHOCYTES % (AUTO) 25.8 % (20.5-51.5); MEAN CORPUSCULAR HEMOGLOBIN 30.2 uug (23.8-33.4); MEAN CORPUSCULAR HGB CONC 35 g/dL (32.5-36.3); MONOCYTES # (AUTO) 0.8 K/uL (2.0-10.0); MONOCYTES % (AUTO) 9.2 % (0.0-11.0); NEUTROPHILS # (AUTO) 5.6 K/uL (1.8-8.9); NEUTROPHILS % (AUTO) 64.2 % (38.5-71.5); PLATELET COUNT (AUTO) 230 K/uL (152-348); RED BLOOD CELL COUNT(AUTO) 4.99 MIL/uL (4.06-5.63); WHITE BLOOD COUNT (AUTO) 8.7 K/uL (3.6-10.2)
[2020-11-01 18:34] LABS: CREATININE 1.3 mg/dL (0.6-1.3); POTASSIUM 3.7 mmol/L (3.5-5.1)
--- NOTE | 2020-11-01 18:49 | NUR ---
Patient is resting comfortably on gurney, NAD,calm@this time.
--- NOTE | 2020-11-01 19:13 | NUR ---
Assumed care of patient from day shift FELIBERTO Aburto. Pt AAOx4. In no apparent distress. Still complaining of palpitaions. VS WNL.
--- NOTE | 2020-11-01 19:44 | NUR ---
Dr. Scott at bedside for MSE.
--- NOTE | 2020-11-01 20:23 | NUR ---
Patient discharged to home in stable condition. Written and verbal after care instructions given. Patient verbalizes understanding of instructions. Stressed follow up or return to ER for worsening s/s. Pt ambulated out of the ER with steady gait. All belongings with pt.
[2020-11-01 20:24] VITALS: BP 136/82
== END 2020-11-01 20:20 | disposition home or self-care (01) ==
LOC: ER 17:48
DX: R00.2 Palpitations (principal); I45.6 Pre-excitation syndrome; F41.9 Anxiety disorder, unspecified; K59.00 Constipation, unspecified; Z98.890 Other specified postprocedural states; Z79.899 Other long term (current) drug therapy
CPT/HCPCS: 36415; 70030-TC; 71045; 85025; 93005; A4663

== ENCOUNTER 2021-03-26 06:56 | Emergency (ER) | payer MEDICAID ==
[~2021-03-26] VITALS: Ht 170.2 cm; Wt 86.2 kg
--- NOTE | 2021-03-26 07:10 | NUR ---
at bedside for assessment
--- NOTE | 2021-03-26 07:12 | NUR ---
Patient states he went to [place] with his friends when he began to feel sick for about three days now, states he had coughing and fever, temp noted at 100.3 tympanic
[2021-03-26] MEDS ORDERED: D-ME473S63 PO (07:47)
[2021-03-26] MEDS ORDERED: HYDROCORTISONE 1% CREAM 30 GM TUBE TP ONE ×2 (08:30→08:34)
--- NOTE | 2021-03-26 09:12 | NUR ---
Patient discharged to home in stable condition. no signs of acute distress noted. took all belongings. Written and verbal after care instructions given. Patient verbalizes understanding of instructions. Stressed follow up or return to ER for worsening s/s.
--- NOTE | 2021-03-26 09:12 | NUR ---
Heart rate noted at 103 at rest
[2021-03-26 09:17] VITALS: BP 128/63
== END 2021-03-26 09:10 | disposition home or self-care (01) ==
LOC: ER 06:58
DX: U07.1 COVID-19 (principal); R19.7 Diarrhea, unspecified; I45.6 Pre-excitation syndrome
CPT/HCPCS: 71045; 93005; A4663

== ENCOUNTER 2021-03-29 22:49 | Emergency (ER) | payer SELFPAY ==
[~2021-03-29 22:49] MED LIST changes: +D-ME473S63 PO
--- NOTE | 2021-03-29 22:59 | NUR ---
PATIENT WAS CALLED TO BE TRAIGED BUT WAS NOT PRESENT IN THE WAITING ROOM OR OUTSIDE THE ER.
--- NOTE | 2021-03-29 23:10 | NUR ---
Patient was called to be traiged but was not present in the waiting room or outside of ER.
--- NOTE | 2021-03-29 23:19 | NUR ---
Patient was called to be traiged but not present in the waiting. PATIENT WAS NOT SEEN BY ERMD OR TRADYLOND.
== END 2021-03-29 23:20 | disposition left against medical advice (07) ==
LOC: ER 22:50
DX: Z53.21 Procedure and treatment not carried out due to patient leaving prior to being seen by health care provider (principal)

== ENCOUNTER 2021-05-18 21:46 | Emergency (ER) | payer MEDICAID ==
[~2021-05-18] VITALS: Ht 170.2 cm; Wt 86.2 kg
--- NOTE | 2021-05-18 21:57 | NUR ---
PT AMBULATED TO ER WITH C/O PALPITATIONS FOR A FEW DAYS BUT SOME INTERMITTENT SHARP LEFT SIDE CHEST PAIN STARTED TODAY. PT A/O X4, NO SOB OR LABORED BREATHING, AFEBRILE. DENIES ANY N/V. CLEAR SPEECH, COMPLETE SENTENCES, NO DEFICITS ON ALL EXTREMITIES NOTED. HAND GRIBS EQUAL.
--- NOTE | 2021-05-18 22:10 | NUR ---
DR. SIMMONS AT BEDSIDE, MSE IN PROGRESS.
[2021-05-18 23:33] LABS: HEMATOCRIT 42.8 % (36.7-47.1); MEAN CORPUSCULAR HEMOGLOBIN 30.4 uug (23.8-33.4); MEAN CORPUSCULAR VOLUME 87.3 fL (73.0-96.2); PLATELET COUNT (AUTO) 249 K/uL (152-348)
[2021-05-18 23:36] LABS: CARBON DIOXIDE 29 mmol/L (21-32); CHLORIDE 105 mmol/L (98-107); GLUCOSE 89 mg/dL (74-106); POTASSIUM 3.8 mmol/L (3.5-5.1); UREA NITROGEN, BLOOD 11 mg/dL (7-18)
[2021-05-18 23:50] LABS: ALANINE AMINOTRANSFERASE 72 U/L (16-63); ALKALINE PHOSPHATASE 106 U/L (50-136); ASPARTATE AMINOTRANSFERASE 69 U/L (15-37); BILIRUBIN,TOTAL 0.4 mg/dL (0.2-1.0); TOTAL PROTEIN, SERUM 7.7 g/dL (6.4-8.2)
[2021-05-18 23:51] LABS: BILIRUBIN,DIRECT < 0.1 mg/dL (0.0-0.2)
[2021-05-19] MEDS ORDERED: LORA0.5T48 PO (00:04)
--- NOTE | 2021-05-19 00:12 | NUR ---
Patient discharged to home in stable condition. A/O x4, no changes in LOC. Denies any pain/discomfort upon discharge. Written and verbal after care instructions given. Patient verbalizes understanding of instructions. Stressed follow up or return to ER for worsening s/s. Steady gait.
[2021-05-19 00:13] VITALS: BP 118/67
== END 2021-05-19 00:16 | disposition home or self-care (01) ==
LOC: ER 21:47
DX: R07.9 Chest pain, unspecified (principal); R00.2 Palpitations; Z87.898 Personal history of other specified conditions; Z86.16 Personal history of COVID-19; F41.9 Anxiety disorder, unspecified
CPT/HCPCS: 36415; 70030-TC; 71045; 85025; 93005; A4663

== ENCOUNTER 2021-07-30 12:45 | Emergency (ER) | payer MEDICAID ==
[~2021-07-30] VITALS: Ht 170.2 cm; Wt 83.9 kg
[~2021-07-30 12:45] MED LIST changes: +LORA0.5T48 PO
[2021-07-30] MEDS ORDERED: IV NORMAL SALINE 1000 ML BAG IV ONE (13:00)
[2021-07-30 13:10] LABS: HEMATOCRIT 44.6 % (36.7-47.1); MEAN CORPUSCULAR HEMOGLOBIN 30.6 uug (23.8-33.4); MEAN CORPUSCULAR VOLUME 88.1 fL (73.0-96.2); PLATELET COUNT (AUTO) 286 K/uL (152-348)
[2021-07-30] MEDS ORDERED: DILT-3 PO (13:16)
[2021-07-30 13:20] LABS: CREATININE 1.3 mg/dL (0.6-1.3); POTASSIUM 3.2 mmol/L (3.5-5.1)
[2021-07-30 13:33] LABS: BILIRUBIN,DIRECT 0.1 mg/dL (0.0-0.2); BILIRUBIN,TOTAL 0.7 mg/dL (0.2-1.0); TOTAL PROTEIN, SERUM 7.7 g/dL (6.4-8.2)
[2021-07-30] MEDS ORDERED: POTASSIUM CHLORIDE 20 MEQ TAB.PRT.SR PO ONE (13:45)
[2021-07-30] MEDS ORDERED: LORAZEPAM 2 MG/1 ML VIAL IV ONE (13:45)
[2021-07-30] MEDS: MAGNESIUM SULFATE/D5W 100 ML IV SCH ×2 (13:46→14:46)
[2021-07-30] MEDS ORDERED: POTASSIUM CHLORIDE 20 MEQ TAB.PRT.SR ONE (13:50)
[2021-07-30] MEDS ORDERED: MAGNESIUM SULFATE/D5W 100 ML ONE ×2 (13:50→14:07)
[2021-07-30] MEDS ORDERED: LORAZEPAM 2 MG/1 ML VIAL ONE (13:51)
[2021-07-30] MEDS ORDERED: METOPROLOL TARTRATE 50 MG TABLET PO ONE (15:30)
[2021-07-30 15:46] VITALS: BP 120/77
[2021-07-30] MEDS ORDERED: METOPROLOL TARTRATE 50 MG TABLET ONE (15:52)
--- NOTE | 2021-07-30 17:14 | NUR ---
Patient discharged to home in stable condition. Written and verbal after care instructions given. Patient verbalizes understanding of instructions. Stressed follow up or return to ER for worsening s/s.pt walks in steady gait, deneisa filomena cp, dizziness or any other complain.
== END 2021-07-30 17:15 | disposition home or self-care (01) ==
LOC: ER 12:45
DX: F41.9 Anxiety disorder, unspecified (principal); R06.02 Shortness of breath; R00.2 Palpitations; Z86.79 Personal history of other diseases of the circulatory system; Z86.16 Personal history of COVID-19
CPT/HCPCS: 36415; 71045; 80048; 80076; 83880; 84484; 85025; 85730; 93005; 96361; 96365; 96366; 96375; 99285; J2060; J3475 ×2; 70030-TC; A4663; J7030

== ENCOUNTER 2021-11-15 20:50 | Emergency (ER) | payer MEDICAID ==
[~2021-11-15] VITALS: Ht 170.2 cm; Wt 86.2 kg
[~2021-11-15 20:50] MED LIST changes: -D-ME473S63 PO; +DILT-3 PO; -DILT-32 PO
--- NOTE | 2021-11-15 21:00 | NUR ---
patient came in ER A/O x4 c/o feeling SOB, while out drinking tonight. pt denies dizziness, CP, n/v, no apparent distress. clear speech, complete sentences, able to move extremities within normal limits
--- NOTE | 2021-11-15 21:52 | NUR ---
XR tech at bedside
[2021-11-15 21:54] LABS: HEMATOCRIT 42.7 % (36.7-47.1); MEAN CORPUSCULAR HEMOGLOBIN 30.9 uug (23.8-33.4); MEAN CORPUSCULAR VOLUME 87.3 fL (73.0-96.2); PLATELET COUNT (AUTO) 235 K/uL (152-348)
[2021-11-15 21:59] LABS: CARBON DIOXIDE 30 mmol/L (21-32); CHLORIDE 104 mmol/L (98-107); CREATININE 1.2 mg/dL (0.6-1.3); GLUCOSE 102 mg/dL (74-106); POTASSIUM 3.9 mmol/L (3.5-5.1); UREA NITROGEN, BLOOD 8 mg/dL (7-18)
[2021-11-15 22:11] LABS: MAGNESIUM 2.1 mg/dL (1.8-2.4)
--- NOTE | 2021-11-15 22:37 | NUR ---
PT IN BED AWAKE, USING HIS PERSONAL CELLPHONE. NO SOB OR LABORED BREATHING, DENIES ANY PAIN/DISCOMFORT.
[2021-11-15 22:49] LABS: THYROID STIMULATING HORMONE 2.182 mIU/mL (0.358-3.740)
--- NOTE | 2021-11-15 23:48 | NUR ---
Patient discharged to home in stable condition. Written and verbal after care instructions given. Patient verbalizes understanding of instructions. Stressed follow up or return to ER for worsening s/s. Steady gait, denies any n/v. No LEACH/dizzyness. No SOB or labored breathing. No changes in LOC.
[2021-11-15 23:52] VITALS: BP 133/77
== END 2021-11-15 23:52 | disposition home or self-care (01) ==
LOC: ER 20:52
DX: R00.0 Tachycardia, unspecified (principal); Z86.16 Personal history of COVID-19; F41.9 Anxiety disorder, unspecified; Z79.899 Other long term (current) drug therapy
CPT/HCPCS: 36415; 71045; 83735; 84443; 84484; 85025; 93005; A4663

== ENCOUNTER 2022-01-02 22:39 | Emergency (ER) | payer SELFPAY ==
--- NOTE | 2022-01-02 23:00 | NUR ---
Called patient to be triaged but was not present in the waiting room or outside of ER.
--- NOTE | 2022-01-02 23:15 | NUR ---
Patient was called to be triaged but was not present in the waiting room or outside of ER.
--- NOTE | 2022-01-02 23:25 | NUR ---
Patient was called to be triaged but was not present in the waiting room or outside of ER. PATIENT WAS NOT TRIAGED OR SEEN BY ERMD.
== END 2022-01-02 23:30 | disposition left against medical advice (07) ==
LOC: ER 22:49
DX: Z53.21 Procedure and treatment not carried out due to patient leaving prior to being seen by health care provider (principal)

== ENCOUNTER 2022-04-18 18:09 | Emergency (ER) | payer MEDICAID ==
[~2022-04-18] VITALS: Ht 170.2 cm; Wt 90.7 kg
--- NOTE | 2022-04-18 19:29 | NUR ---
Hands off report given to fercho Elder RN lieutenant shift supervisor.
--- NOTE | 2022-04-18 19:40 | NUR ---
A>Pt's airway is patent, talking in full sentences. B>Breathing is symmetrical, with no respiratory distress at 18 rate. Saturating 100% on RA. C>No CP, no edema, BP is 124/78. Capp refill is <2secs. Skin is warm, dry and normal for his ethnicity. D>Pt c/o numbness on left forehead and travels to the other side of the face when he feels anxious and affects his ability to play video games. He works as a security incident handler and sometimes it makes him pace a lot because he gets anxious why he has this feeling on his forehead that has been persisting for the last 5 days. Good hand litigation attorney associate, even smile and even eye brows when asked to raise them. Pt mentioned his father had Mckeon's palsy. GCS 15/15, alert, oriented x4. He's calm and cooperative at this time. E>Pt's temp is 98.8F taken orally. No wounds.
--- NOTE | 2022-04-18 20:44 | NUR ---
EKG handed toDr. Avila SR at 95
[2022-04-18 21:20] VITALS: BP 124/78
== END 2022-04-18 21:21 | disposition home or self-care (01) ==
LOC: ER 18:09
DX: R20.2 Paresthesia of skin (principal); R94.31 Abnormal electrocardiogram [ECG] [EKG]; Z86.16 Personal history of COVID-19; I45.6 Pre-excitation syndrome
CPT/HCPCS: 93005; A4663

== ENCOUNTER 2022-04-22 12:11 | Emergency (ER) | payer MEDICAID ==
[~2022-04-22] VITALS: Ht 170.2 cm; Wt 99.8 kg
[2022-04-22] MEDS ORDERED: KETOROLAC TROMETHAMINE 30 MG INJ IM ONE (13:15)
[2022-04-22] MEDS ORDERED: DIAZEPAM 2 MG TABLET PO ONE (13:15)
[2022-04-22] MEDS ORDERED: DIAZEPAM 2 MG TABLET ONE (13:17)
[2022-04-22] MEDS ORDERED: KETOROLAC TROMETHAMINE 30 MG INJ ONE (13:17)
[2022-04-22] MEDS ORDERED: LIDO30AD10 TP (13:43)
--- NOTE | 2022-04-22 14:13 | NUR ---
DCD instructions given to pt. who verbalized understanding. pt. left room AAAOX4. no c/of pain or any other discomfort.
== END 2022-04-22 14:18 | disposition home or self-care (01) ==
LOC: ER 12:11
DX: S29.012A Strain of muscle and tendon of back wall of thorax, initial encounter (principal); X58.XXXA Exposure to other specified factors, initial encounter; Y92.89 Other specified places as the place of occurrence of the external cause; S16.1XXA Strain of muscle, fascia and tendon at neck level, initial encounter; F41.9 Anxiety disorder, unspecified
CPT/HCPCS: 99283; 93005; 96372; J1885

== ENCOUNTER 2022-07-20 05:08 | Emergency (ER) | payer MEDICAID ==
[~2022-07-20] VITALS: Ht 170.2 cm; Wt 97.5 kg
[~2022-07-20 05:08] MED LIST changes: +LIDO30AD10 TP
[2022-07-20] MEDS ORDERED: LORA-259 PO (05:50)
--- NOTE | 2022-07-20 05:56 | NUR ---
Patient discharged to home in stable condition. Written and verbal after care instructions given. Patient verbalizes understanding of instructions. Stressed follow up or return to ER for worsening s/s. Pt out of ER with steady gait, no acute signs of distress, VSS, all belongings taken.
[2022-07-20 05:57] VITALS: BP 134/78
== END 2022-07-20 05:58 | disposition home or self-care (01) ==
LOC: ER 05:17
DX: G89.29 Other chronic pain (principal); M54.2 Cervicalgia; F41.9 Anxiety disorder, unspecified; I45.6 Pre-excitation syndrome
CPT/HCPCS: A4663

== ENCOUNTER 2022-08-17 20:48 | Emergency (ER) | payer MEDICAID ==
[~2022-08-17] VITALS: Ht 170.2 cm; Wt 99.8 kg
[~2022-08-17 20:48] MED LIST changes: +LORA-259 PO
[2022-08-17 21:55] LABS: HEMATOCRIT 45.3 % (36.7-47.1); MEAN CORPUSCULAR HEMOGLOBIN 29.3 uug (23.8-33.4); MEAN CORPUSCULAR VOLUME 86.5 fL (73.0-96.2); PLATELET COUNT (AUTO) 299 K/uL (152-348)
[2022-08-17 22:18] LABS: MAGNESIUM 2.3 mg/dL (1.8-2.4)
[2022-08-17 22:19] LABS: CARBON DIOXIDE 31 mmol/L (21-32); CHLORIDE 103 mmol/L (98-107); GLUCOSE 115 mg/dL (74-106); POTASSIUM 3.5 mmol/L (3.5-5.1); UREA NITROGEN, BLOOD 13 mg/dL (7-18)
[2022-08-17 22:25] LABS: ALANINE AMINOTRANSFERASE 53 U/L (16-63); ALKALINE PHOSPHATASE 127 U/L (50-136); ASPARTATE AMINOTRANSFERASE 25 U/L (15-37); BILIRUBIN,DIRECT 0.1 mg/dL (0.0-0.2); BILIRUBIN,TOTAL 0.4 mg/dL (0.2-1.0); TOTAL PROTEIN, SERUM 7.6 g/dL (6.4-8.2)
[2022-08-17 22:31] LABS: THYROID STIMULATING HORMONE 1.705 mIU/mL (0.358-3.740)
[2022-08-17] MEDS ORDERED: BLOO-1731 MC (22:58)
--- NOTE | 2022-08-17 23:22 | NUR ---
Patient discharged to home in stable condition. Written and verbal after care instructions given. Patient verbalizes understanding of instructions. Stressed follow up or return to ER for worsening s/s. Patient out of ER with steady gait, no acute signs of distress, VSS, all belongings taken, provided with copies of lab results.
[2022-08-17 23:23] VITALS: BP 141/86
== END 2022-08-17 23:23 | disposition home or self-care (01) ==
LOC: ER 20:48
DX: R00.0 Tachycardia, unspecified (principal); R00.2 Palpitations; R73.03 Prediabetes; R03.0 Elevated blood-pressure reading, without diagnosis of hypertension; Z86.79 Personal history of other diseases of the circulatory system
CPT/HCPCS: 36415; 83735; 84443; 84484; 85025; 93005; A4663

== ENCOUNTER 2022-09-15 08:54 | Emergency (ER) | payer MEDICAID ==
[~2022-09-15] VITALS: Ht 170.2 cm; Wt 94.3 kg
[~2022-09-15 08:54] MED LIST changes: +BLOO-1731 MC
--- NOTE | 2022-09-15 09:50 | NUR ---
Patient in bed, resting. No acute distress noted. Vital signs within normal limits. Will continue to monitor.
--- NOTE | 2022-09-15 10:08 | NUR ---
Patient discharged to home in stable condition. Written and verbal after care instructions given. Patient verbalizes understanding of instructions. Patient ambulate with steady gait. Stressed follow up or return to ER for worsening s/s.
[2022-09-15 10:09] VITALS: BP 137/92
== END 2022-09-15 10:09 | disposition home or self-care (01) ==
LOC: ER 08:55
DX: R00.2 Palpitations (principal); R00.0 Tachycardia, unspecified; Z86.16 Personal history of COVID-19
CPT/HCPCS: 93005; A4663

== ENCOUNTER 2022-10-17 14:55 | Emergency (ER) | payer MEDICAID ==
[~2022-10-17] VITALS: Ht 170.2 cm; Wt 90.7 kg
--- NOTE | 2022-10-17 15:00 | NUR ---
Medical screening and exam in proccess by Dr Corey.
[2022-10-17 15:18] LABS: HEMATOCRIT 46.2 % (36.7-47.1); MEAN CORPUSCULAR HEMOGLOBIN 29.4 uug (23.8-33.4); MEAN CORPUSCULAR VOLUME 86.1 fL (73.0-96.2); PLATELET COUNT (AUTO) 289 K/uL (152-348)
[2022-10-17 15:38] LABS: CARBON DIOXIDE 31 mmol/L (21-32); CHLORIDE 105 mmol/L (98-107); CREATININE 0.9 mg/dL (0.6-1.3); GLUCOSE 112 mg/dL (74-106); POTASSIUM 3.8 mmol/L (3.5-5.1); UREA NITROGEN, BLOOD 11 mg/dL (7-18)
[2022-10-17] MEDS ORDERED: IBUP-1955 PO (16:02)
[2022-10-17] MEDS ORDERED: KETOROLAC TROMETHAMINE 15 MG INJ ONE (16:03)
[2022-10-17] MEDS: KETOROLAC TROMETHAMINE 15 MG INJ IM ONE (16:15)
[2022-10-17 16:19] VITALS: BP 115/76
== END 2022-10-17 16:20 | disposition home or self-care (01) ==
LOC: ER 14:55
DX: R07.89 Other chest pain (principal); I45.6 Pre-excitation syndrome; Z79.899 Other long term (current) drug therapy; F41.9 Anxiety disorder, unspecified
CPT/HCPCS: 99285; 71045; 80048; 85025; 84484; 36415; 93005; 96372; J1885; A4663

== ENCOUNTER 2023-03-08 17:59 | Emergency (ER) | payer MEDICAID ==
[~2023-03-08] VITALS: Ht 170.2 cm; Wt 90.7 kg
[~2023-03-08 17:59] MED LIST changes: +IBUP-1955 PO
[2023-03-08 18:10] VITALS: O2SAT 97
== END 2023-03-08 18:13 | disposition left against medical advice (07) ==
LOC: ER 17:59
DX: Z53.21 Procedure and treatment not carried out due to patient leaving prior to being seen by health care provider (principal)
CPT/HCPCS: A4663

== ENCOUNTER 2023-10-18 08:42 | Emergency (ER) | payer MEDICAID, OTHER ==
[~2023-10-18] VITALS: Ht 170.2 cm; Wt 95.3 kg
[2023-10-18 10:18] LABS: BASOPHILS % (AUTO) 0.4 % (0.0-2.0); EOSINOPHILS % (AUTO) 0.4 % (0.0-7.0); HEMATOCRIT 44.8 % (36.7-47.1); HEMOGLOBIN 15.4 g/dL (12.5-16.3); LYMPHOCYTES # (AUTO) 1.6 K/uL (0.8-4.8); MEAN CORPUSCULAR HEMOGLOBIN 29.8 uug (23.8-33.4); MEAN CORPUSCULAR HGB CONC 35 g/dL (32.5-36.3); MEAN CORPUSCULAR VOLUME 86.2 fL (73.0-96.2); MONOCYTES # (AUTO) 0.6 K/uL (0.1-1.30); MONOCYTES % (AUTO) 7.2 % (0.0-11.0); NEUTROPHILS # (AUTO) 6.6 K/uL (1.8-8.9); PLATELET COUNT (AUTO) 248 K/uL (152-348); RED BLOOD CELL COUNT(AUTO) 5.19 MIL/uL (4.06-5.63); RED CELL DISTRIBUTION WIDTH 12.9 % (12.1-16.2)
[2023-10-18 10:19] VITALS: O2SAT 99
[2023-10-18 10:42] LABS: CALCIUM 9.2 mg/dL (8.5-10.1); CARBON DIOXIDE 28 mmol/L (21-32); CHLORIDE 103 mmol/L (98-107); GLUCOSE 103 mg/dL (74-106); SODIUM SERUM 138 mmol/L (136-145); UREA NITROGEN, BLOOD 11 mg/dL (7-18)
[2023-10-18 10:47] LABS: DIFFERENTIAL COMMENT 1
[2023-10-18 10:55] LABS: ALANINE AMINOTRANSFERASE 47 U/L (16-63); ALBUMIN 4.1 g/dL (3.4-5.0); ALKALINE PHOSPHATASE 123 U/L (50-136); ASPARTATE AMINOTRANSFERASE 17 U/L (15-37); BILIRUBIN,DIRECT 0.2 mg/dL (0.0-0.2); BILIRUBIN,TOTAL 0.8 mg/dL (0.2-1.0); TOTAL PROTEIN, SERUM 7.8 g/dL (6.4-8.2)
[2023-10-18 10:57] LABS: NT-PRO BNP 7 pg/mL (0-125)
[2023-10-18 12:37] VITALS: BP 117/78
== END 2023-10-18 12:37 | disposition home or self-care (01) ==
LOC: ER 08:48
DX: R00.2 Palpitations (principal); F41.9 Anxiety disorder, unspecified; Z90.49 Acquired absence of other specified parts of digestive tract; Z79.899 Other long term (current) drug therapy; Z60.2 Problems related to living alone
CPT/HCPCS: 36415; 84484; 85025; 85730; 93005; A4606; A4663

== ENCOUNTER 2024-02-23 05:40 | Emergency (ER) | payer MEDICAID, OTHER ==
[~2024-02-23] VITALS: Ht 170.2 cm; Wt 102.1 kg
[~2024-02-23 05:40] MED LIST changes: +DILT180C66 PO
[2024-02-23 06:24] LABS: BASOPHILS # (AUTO) 0.1 K/UL (0.0-0.2); BASOPHILS % (AUTO) 0.5 % (0.0-2.0); EOSINOPHILS # (AUTO) 0.1 K/uL (0.0-0.7); EOSINOPHILS % (AUTO) 1.5 % (0.0-7.0); HEMATOCRIT 43.8 % (36.7-47.1); HEMOGLOBIN 14.7 g/dL (12.5-16.3); LYMPHOCYTES # (AUTO) 2.6 K/uL (0.8-4.8); LYMPHOCYTES % (AUTO) 26.1 % (20.5-51.5); MEAN CORPUSCULAR HEMOGLOBIN 28.8 uug (23.8-33.4); MEAN CORPUSCULAR HGB CONC 34 g/dL (32.5-36.3); MEAN CORPUSCULAR VOLUME 85.6 fL (73.0-96.2); MONOCYTES # (AUTO) 0.9 K/uL (0.1-1.30); MONOCYTES % (AUTO) 9.2 % (0.0-11.0); NEUTROPHILS # (AUTO) 6.2 K/uL (1.8-8.9); NEUTROPHILS % (AUTO) 62.7 % (38.5-71.5); PLATELET COUNT (AUTO) 282 K/uL (152-348); RED BLOOD CELL COUNT(AUTO) 5.11 MIL/uL (4.06-5.63); RED CELL DISTRIBUTION WIDTH 12.9 % (12.1-16.2); WHITE BLOOD COUNT (AUTO) 9.9 K/uL (3.6-10.2)
[2024-02-23 06:28] LABS: DIFFERENTIAL COMMENT 1
[2024-02-23 06:37] LABS: ALBUMIN 3.6 g/dL (3.4-5.0); BILIRUBIN,TOTAL 0.4 mg/dL (0.2-1.0); CALCIUM 8.5 mg/dL (8.5-10.1); CREATININE 0.9 mg/dL (0.6-1.3); MAGNESIUM 2.1 mg/dL (1.8-2.4); POTASSIUM 3.5 mmol/L (3.5-5.1); TOTAL PROTEIN, SERUM 7.3 g/dL (6.4-8.2)
[2024-02-23 07:30] VITALS: O2SAT 99
== END 2024-02-23 08:17 | disposition home or self-care (01) ==
LOC: ER 05:44
DX: R42 Dizziness and giddiness (principal); G20.A1 Parkinson's disease without dyskinesia, without mention of fluctuations; Z98.890 Other specified postprocedural states; Z79.899 Other long term (current) drug therapy; Z60.2 Problems related to living alone
CPT/HCPCS: 36415; 71045; 83735; 85025; 93005; A4606; A4663

== ENCOUNTER 2024-03-24 12:09 | Emergency (ER) | payer MEDICAID ==
[~2024-03-24] VITALS: Ht 170.2 cm; Wt 99.8 kg
[2024-03-24 14:07] LABS: CALCIUM 8.8 mg/dL (8.5-10.1); CREATININE 0.8 mg/dL (0.6-1.3); POTASSIUM 3.6 mmol/L (3.5-5.1)
[2024-03-24 14:09] LABS: BASOPHILS % (AUTO) 0.4 % (0.0-2.0); EOSINOPHILS % (AUTO) 0.4 % (0.0-7.0); HEMATOCRIT 45.5 % (36.7-47.1); HEMOGLOBIN 15.1 g/dL (12.5-16.3); LYMPHOCYTES % (AUTO) 19.3 % (20.5-51.5); MEAN CORPUSCULAR HEMOGLOBIN 28.5 uug (23.8-33.4); MEAN CORPUSCULAR HGB CONC 33 g/dL (32.5-36.3); MEAN CORPUSCULAR VOLUME 85.8 fL (73.0-96.2); MONOCYTES # (AUTO) 0.7 K/uL (0.1-1.30); MONOCYTES % (AUTO) 7.3 % (0.0-11.0); NEUTROPHILS # (AUTO) 7.5 K/uL (1.8-8.9); NEUTROPHILS % (AUTO) 72.6 % (38.5-71.5); PLATELET COUNT (AUTO) 278 K/uL (152-348); RED BLOOD CELL COUNT(AUTO) 5.31 MIL/uL (4.06-5.63); WHITE BLOOD COUNT (AUTO) 10.3 K/uL (3.6-10.2)
[2024-03-24 14:10] LABS: DIFFERENTIAL COMMENT 1
[2024-03-24] MEDS ORDERED: FLAS1KIT2 TP (15:03)
[2024-03-24] MEDS ORDERED: FLAS1EAC2 TP (15:03)
[2024-03-24 15:42] VITALS: BP 132/85; TEMP 96.9; O2SAT 99
== END 2024-03-24 15:43 | disposition home or self-care (01) ==
LOC: ER 12:09
DX: R00.0 Tachycardia, unspecified (principal); Z79.1 Long term (current) use of non-steroidal anti-inflammatories (NSAID); Z98.890 Other specified postprocedural states; Z79.899 Other long term (current) drug therapy; Z60.2 Problems related to living alone
CPT/HCPCS: 36415; 83735; 85025; 93005; A4606; A4663